=== PATIENT | female | born 1975 | race Caucasian/White ===

== ENCOUNTER 2018-02-12 10:59 | Day surgery (SDC) | payer OTHER ==
[~2018-02-12 10:59] MED LIST: PROPOFOL 200 MG/20 ML VIAL As Ordered
[2018-02-12] MEDS ORDERED: NS 1,000 ML IV (12:00)
== END 2018-02-12 13:31 | disposition home or self-care (01) ==
LOC: M OPP 10:59
DX: K62.5 Hemorrhage of anus and rectum (principal); K64.1 Second degree hemorrhoids; G43.909 Migraine, unspecified, not intractable, without status migrainosus; R56.9 Unspecified convulsions; F41.9 Anxiety disorder, unspecified; J45.909 Unspecified asthma, uncomplicated; Z88.1 Allergy status to other antibiotic agents; Z88.8 Allergy status to other drugs, medicaments and biological substances; Z79.899 Other long term (current) drug therapy
CPT/HCPCS: 45378

== ENCOUNTER → 2019-04-11 | Outpatient (CLI) | payer OTHER ==
[~2019-04-11] MED LIST changes: +CLAR5TAB PO; +FOLI1TAB11 PO; +METH2.5T48 PO; -PROPOFOL 200 MG/20 ML VIAL As Ordered; +RIZA10TA2 PO; +TOPA100T12 PO; +VENL75CA47 PO
[2019-04-11 18:16] LABS: BASO # 0.1 10^3/uL (0.0-0.2); BASO % 0.7 % (0.0-1.0); EOS # 0.1 10^3/uL (0.0-0.50); EOS % 0.8 % (0.0-3.0); HEMATOCRIT 42.9 % (36.0-47.0); HEMOGLOBIN 13.9 g/dl (12.0-15.5); LYMPH # 1.9 10^3/uL (1.5-4.5); LYMPH % 25.1 % (24.0-44.0); MEAN CORPUSCULAR HEMOGLOBIN 29.5 pg (27.0-33.0); MEAN CORPUSCULAR HGB CONC 32.4 g/dl (32.0-36.5); MEAN CORPUSCULAR VOLUME 91.1 fl (80.0-96.0); MONO # 0.5 10^3/uL (0.0-0.8); MONO % 6.1 % (0.0-5.0); NEUTROPHILS # 4.9 10^3/uL (1.8-7.7); NEUTROPHILS % 66.9 % (36.0-66.0); PLATELET COUNT, AUTOMATED 275 10^3/uL (150-450); RED BLOOD COUNT 4.71 10^6/uL (4.00-5.40); WHITE BLOOD COUNT 7.4 10^3/uL (4.0-10.0)
[2019-04-11 18:19] LABS: BLOOD UREA NITROGEN 9 MG/DL (7-18); CALCIUM LEVEL 8.5 MG/DL (8.5-10.1); CARBON DIOXIDE LEVEL 25 MEQ/L (21-32); CHLORIDE LEVEL 110 MEQ/L (98-107); CREATININE FOR GFR 0.64 MG/DL (0.55-1.30); GLOMERULAR FILTRATION RATE > 60.0 (>58); GLUCOSE, FASTING 82 MG/DL (70-100); POTASSIUM SERUM 3.9 MEQ/L (3.5-5.1); SODIUM LEVEL 142 MEQ/L (136-145)
[2019-04-11 18:27] LABS: HCG, SERUM QUALITATIVE NEGATIVE (NEGATIVE)
== END ==
LOC: M WUC 11:57
PROVIDERS: ATTEND Orthopaedic Surgery
DX: Z01.818 Encounter for other preprocedural examination (principal); M24.151 Other articular cartilage disorders, right hip; M25.551 Pain in right hip

== ENCOUNTER → 2020-03-17 | Outpatient (CLI) | payer OTHER ==
[2020-03-17 17:11] LABS: ALBUMIN 4.1 GM/DL (3.2-5.2); PERCENT SATURATION 40.9 % (13.2-45.0)
[2020-03-17 17:13] LABS: BASO # 0.1 10^3/uL (0.0-0.2); BASO % 0.9 % (0.0-1.0); EOS # 0.1 10^3/uL (0.0-0.5); EOS % 0.9 % (0.0-3.0); HEMATOCRIT 42.8 % (36.0-47.0); HEMOGLOBIN 14.3 g/dl (12.0-15.5); LYMPH # 2.4 10^3/uL (1.5-5.0); LYMPH % 31.5 % (24.0-44.0); MEAN CORPUSCULAR HEMOGLOBIN 29.7 pg (27.0-33.0); MEAN CORPUSCULAR HGB CONC 33.4 g/dl (32.0-36.5); MONO # 0.6 10^3/uL (0.0-0.8); MONO % 7.2 % (0.0-5.0); NEUTROPHILS # 4.5 10^3/uL (1.5-8.5); NEUTROPHILS % 59.2 % (36.0-66.0); PLATELET COUNT, AUTOMATED 325 10^3/uL (150-450); RED BLOOD COUNT 4.81 10^6/uL (4.00-5.40); WHITE BLOOD COUNT 7.7 10^3/uL (4.0-10.0)
== END ==
LOC: M WUC 14:02
PROVIDERS: ATTEND Orthopaedic Surgery
DX: Z01.818 Encounter for other preprocedural examination (principal); M16.11 Unilateral primary osteoarthritis, right hip; M25.559 Pain in unspecified hip

== ENCOUNTER 2020-07-10 13:21 | Emergency (ER) | payer OTHER ==
[~2020-07-10] VITALS: Ht 162.6 cm; Wt 65.2 kg
[2020-07-10] MEDS ORDERED: DULO1CAP6 PO (13:31)
[2020-07-10 15:10] LABS: BASO # 0.1 10^3/uL (0.0-0.2); BASO % 0.7 % (0.0-1.0); EOS # 0.1 10^3/uL (0.0-0.5); EOS % 0.6 % (0.0-3.0); HEMATOCRIT 42.2 % (36.0-47.0); LYMPH # 1.6 10^3/uL (1.5-5.0); LYMPH % 18.7 % (24.0-44.0); MEAN CORPUSCULAR HEMOGLOBIN 29.7 pg (27.0-33.0); MEAN CORPUSCULAR HGB CONC 33.2 g/dl (32.0-36.5); MEAN CORPUSCULAR VOLUME 89.4 fl (80.0-96.0); MONO # 0.4 10^3/uL (0.0-0.8); MONO % 4.7 % (0.0-5.0); NEUTROPHILS # 6.6 10^3/uL (1.5-8.5); NEUTROPHILS % 74.8 % (36.0-66.0); PLATELET COUNT, AUTOMATED 255 10^3/uL (150-450); RED BLOOD COUNT 4.72 10^6/uL (4.00-5.40); WHITE BLOOD COUNT 8.8 10^3/uL (4.0-10.0)
[2020-07-10 15:29] LABS: ALBUMIN 4.2 GM/DL (3.2-5.2); ALT/SGPT 19 U/L (12-78); BILIRUBIN,DIRECT < 0.1 MG/DL (0.0-0.2); BILIRUBIN,TOTAL 0.4 MG/DL (0.2-1.0); BLOOD UREA NITROGEN 14 MG/DL (7-18); CALCIUM LEVEL 8.8 MG/DL (8.5-10.1); CARBON DIOXIDE LEVEL 26 MEQ/L (21-32); CHLORIDE LEVEL 110 MEQ/L (98-107); CREATININE FOR GFR 0.68 MG/DL (0.55-1.30); GLOMERULAR FILTRATION RATE > 60.0 (>58); GLUCOSE, FASTING 99 MG/DL (70-100); LIPASE 78 U/L (73-393); POTASSIUM SERUM 4.3 MEQ/L (3.5-5.1); SODIUM LEVEL 140 MEQ/L (136-145); TOTAL PROTEIN 7.2 GM/DL (6.4-8.2)
--- NOTE | 2020-07-10 15:38 | REPVR ---
PROCEDURE INFORMATION: Exam: US Pelvis Complete, Transabdominal and US Pelvis, Transvaginal and US Duplex Artery and Vein, Ovaries, Complete Exam date and time: 07/10/2020 3:20 PM Age: 45 years old Clinical indication: Pelvic pain; Additional info: Rlq pain, h/o ovarian cysts, s/o appendectomy TECHNIQUE: Imaging protocol: Real-time transabdominal and transvaginal pelvic ultrasound (complete) with image documentation. Transvaginal imaging was used for better evaluation of the endometrium and adnexa. Real-time duplex ultrasound scan of the arterial and venous flow of the ovaries with B-mode, color Doppler flow and spectral waveform analysis. COMPARISON: No relevant prior studies available. FINDINGS: Uterus/cervix: The uterus measures 8.2 x 3.7 x 5.0 cm transabdominally and 8.0 x 3.8 x 4.6 cm transvaginally. It is homogeneous in echotexture, without demonstrated lesion. An intrauterine device is in place. The endometrium measures 4.1 mm in thickness transvaginally. Right adnexa: The right ovary measures 6.3 x 6.6 x 5.9 cm transabdominally and 6.3 x 5.1 x 6.5 cm transvaginally. It contains a simple cyst which measures 5.4 x 4.8 x 3.7 cm. There is normal internal arterial and venous flow. Peak systolic velocity 11.3 cm/s, end-diastolic velocity 5.3 cm/s, resistive index 0.53. Left adnexa: The left ovary measures 2.0 x 1.3 x 1.8 cm, as visualized transvaginally only. It is without demonstrated abnormality and with internal arterial and venous flow. Peak systolic velocity 7.5 cm/s, end-diastolic velocity 4.3 cm/s, resistive index 0.43. Intraperitoneal space: No significant free fluid is demonstrated. Bladder: The urinary bladder was essentially empty. IMPRESSION: 1. Unremarkable uterus with an intrauterine device in place. 2. 5.4 cm simple right ovarian cyst. Recommend yearly follow-up. 3. Unremarkable left ovary. 4. Normal internal flow to the ovaries without torsion. Electronically signed by: Zane Vital On 07/10/2020 15:38:00 PM
[2020-07-10] MEDS ORDERED: IBUP80TA PO (16:23)
[2020-07-10 16:31] LABS: HCG, SERUM QUALITATIVE NEGATIVE (NEGATIVE)
[2020-07-10] MEDS ORDERED: KETOROLAC 30 MG/ML 1ML VIAL IV ONE (16:45)
[2020-07-10 17:00] VITALS: BP 122/76
--- NOTE | 2020-07-11 19:58 | ED PDOC ---
Post-Departure Follow-Up dr jennifer wagner faxed formal report of pelvic us for fu Eitan Rai MD Jul 11, 2020 19:57
== END 2020-07-10 17:01 | disposition home or self-care (01) ==
LOC: M ED 13:21
DX: N83.299 Other ovarian cyst, unspecified side (principal); R10.31 Right lower quadrant pain; Z97.5 Presence of (intrauterine) contraceptive device; Z86.19 Personal history of other infectious and parasitic diseases; Z87.59 Personal history of other complications of pregnancy, childbirth and the puerperium; D25.9 Leiomyoma of uterus, unspecified
CPT/HCPCS: 76830; 76856; 80048; 80076; 81001; 83690; 84703; 85025; 93976; 99284; J1885

== ENCOUNTER → 2020-10-14 | Outpatient (CLI) | payer OTHER ==
[~2020-10-14] MED LIST changes: +DULO1CAP6 PO; +IBUP80TA PO; +SYMB80INH INH
== END ==
LOC: M LABSMTC 08:30
PROVIDERS: ATTEND Anesthesiology
DX: Z01.812 Encounter for preprocedural laboratory examination (principal); Z20.828 Contact with and (suspected) exposure to other viral communicable diseases

== ENCOUNTER 2020-10-19 06:30 | Day surgery (SDC) | payer OTHER ==
[2020-10-19] VITALS (7 sets, daily range): BP systolic 103–124; BP diastolic 61–85
[~2020-10-19] VITALS: Ht 160 cm; Wt 64.9 kg
[2020-10-19 06:58] LABS: HEMATOCRIT 46.6 % (36.0-47.0); HEMOGLOBIN 14.4 g/dl (12.0-15.5); MEAN CORPUSCULAR HEMOGLOBIN 28.2 pg (27.0-33.0); MEAN CORPUSCULAR HGB CONC 30.9 g/dl (32.0-36.5); MEAN CORPUSCULAR VOLUME 91.4 fl (80.0-96.0); PLATELET COUNT, AUTOMATED 294 10^3/uL (150-450); WHITE BLOOD COUNT 7.8 10^3/uL (4.0-10.0)
[2020-10-19] MEDS ORDERED: VANCOMYCIN HCL 1,000 MG, VIAL MATE ADAPTER 1 EACH in D5W 250 ML IV ONE (07:00)
[2020-10-19] MEDS ORDERED: LR 1,000 ML IV ONE (07:00)
[2020-10-19] MEDS ORDERED: fentaNYL 250 MCG/5 ML INJECTION (J3010) As Ordered ONE (07:02)
[2020-10-19] MEDS ORDERED: MIDAZOLAM INJ 2MG/2ML VIAL (J2250 PER 1MG) As Ordered ONE (07:02)
[2020-10-19] MEDS ORDERED: propofoL 200 MG/20 ML VIAL As Ordered ONE (07:03)
[2020-10-19] MEDS ORDERED: ROCURONIUM BROMIDE 50 MG/5 ML VIAL As Ordered ONE (07:05)
[2020-10-19] MEDS ORDERED: dexameTHASONE 4 MG/ML 1ML VIAL (J1100 PER 1MG) As Ordered ONE (07:09)
[2020-10-19] MEDS ORDERED: ONDANSETRON 4MG/2ML VIAL As Ordered ONE (07:09)
[2020-10-19] MEDS ORDERED: KETOROLAC 60MG 2ML VIAL As Ordered ONE (07:09)
[2020-10-19] MEDS ORDERED: METOCLOPRAMIDE INJ 10MG/2ML VIAL (J2765 PER 1) As Ordered ONE (07:09)
[2020-10-19] MEDS ORDERED: ACETAMINOPHEN 1000MG 100ML IV BTL (OFIRMEV) (J0131 PER 10MG) As Ordered ONE (07:10)
[2020-10-19] MEDS ORDERED: SUGAMMADEX SODIUM 500 MG/5 ML VIAL (BRIDION) As Ordered ONE (07:10)
[2020-10-19] MEDS ORDERED: LIDOCAINE 2% 100MG/5ML SDV (FOR ANES.) As Ordered ONE (07:14)
[2020-10-19] MEDS ORDERED: SCOPOLAMINE 1MG TRANSDERMAL PATCH As Ordered ONE (07:37)
[2020-10-19] MEDS: metroNIDAZOLE 500 MG in IV 1 EA IV SCH ×2 (08:00→08:11)
[2020-10-19] MEDS ORDERED: ePHEDrine SULFATE 25 MG/5 ML(5MG/ML) SYRINGE As Ordered ONE (08:22)
[2020-10-19] MEDS ORDERED: GLYCOPYRROLATE INJ 0.2 MG/ML 2 ML VIAL As Ordered ONE (08:25)
[2020-10-19] MEDS ORDERED: PHENYLephrine HCL 500 MCG/5 ML (100MCG/ML) SYRINGE (J2370) As Ordered ONE (08:27)
[2020-10-19] MEDS: fentaNYL 100 MCG/2 ML INJECTION (J3010) IV PRN ×4 (10:10→10:26)
[2020-10-19] MEDS: oxyCODONE 5MG TAB PO PRN ×2 (10:11→10:52)
[2020-10-19] MEDS ORDERED: LR 1,000 ML IV SCH ×2 (10:15→12:15)
[2020-10-19] MEDS ORDERED: IBUPROFEN 600MG TAB PO PRN (10:15)
[2020-10-19] MEDS ORDERED: NS 1,000 ML IV SCH (10:15)
[2020-10-19] MEDS ORDERED: MORPHINE 1MG/ML IN 0.9% NACL 100ML IV BAG IV PRN (10:15)
[2020-10-19] MEDS ORDERED: ONDANSETRON 4MG/2ML VIAL IV PRN ×2 (10:15→12:15)
[2020-10-19] MEDS ORDERED: diphenhydrAMINE 50MG/ML VIAL (J1200) IV PRN (10:15)
[2020-10-19] MEDS ORDERED: NALOXONE INJ 0.4MG/1ML VIAL (J2310 PER 1MG) IV PRN (10:15)
[2020-10-19] MEDS ORDERED: NALBUPHINE HCL 10 MG/ML AMP (J2300) IV PRN (10:15)
[2020-10-19] MEDS ORDERED: EPIDURAL/PCA KEYS XX PRN (10:15)
[2020-10-19] MEDS ORDERED: RIZATRIPTAN BENZOATE 10 MG TAB PO PRN (11:30)
[2020-10-19] MEDS ORDERED: fentaNYL 100 MCG/2 ML INJECTION (J3010) IV PRN (12:15)
[2020-10-19] MEDS ORDERED: oxyCODONE 5MG TAB PO PRN (12:15)
--- NOTE | 2020-10-19 13:05 | RO ---
OPERATIVE NOTE DATE OF OPERATION: 10/19/2020 PREOPERATIVE DIAGNOSES: Pain, bleeding, failed intrauterine device (IUD), etc. POSTOPERATIVE DIAGNOSES: Pain, bleeding, failed intrauterine device (IUD), etc. PROCEDURE: Laparoscopic-assisted vaginal hysterectomy with bilateral salpingo-oophorectomy (LAVH-BSO) and removal of IUD. SURGEON: Kristin Dhillon M.D. PHILANTHROPY OFFICER: None. ANESTHESIA: General endotracheal anesthesia. SPECIMENS: Uterus, ovaries, tubes, and IUD. BRIEF DESCRIPTION OF PROCEDURE AND FINDINGS: Pawel was brought to the operating room where sufficient general endotracheal anesthesia was induced. She was prepped, draped, and positioned in the usual sterile fashion with the weighted speculum placed. IUD removed, the cervix dilated, and the uterine manipulator placed and the Crowell with the ability to backfill placed. Mirena IUD was removed intact. There were no complications to the removal. With the manipulation in the place, we turned out attention to the laparoscopic portion of the case. A transverse semilunar incision was made below the umbilicus. Sharp and blunt dissection were continued through the subcutaneous tissues to the level of the rectus fascia, which was elevated with Tessa clamps, transversely incised, and secured with 0-Vicryl retention suture and then, the peritoneum was visualized and carefully entered. Under direct visualization, the Jose Luis cannula was then placed and secured in place with the 0-Vicryl tension sutures and CO2 insufflation was then begun. After adequate CO2 insufflation, the peritoneal cavity was visualized. There were normal shiny peritoneal surfaces throughout. There was no excrescence, ascites, nor exudate, and the uterus, ovaries, and tubes were reassuring in appearance. There were some very minor filmy adhesions of the descending colon to the left pelvic side wall and left flank. These were left in place; they were not distorting nor disrupting access for the case, they were quite minimal, and the infundibulopelvic ligaments were readily accessible. With Trendelenburg and the use of the uterine manipulator, we isolated the infundibulopelvic ligaments. We used the #45 Enseal to carefully cauterize and transect the infundibulopelvic starting on the left and working our way through the mesentery toward the round, which we then also cauterized and transected bilaterally. Then, we were able to see absence of injury to the bladder or bowel from above. We had the ovaries free and so attention was turned to the vaginal portion of the case with the instruments removed above, but the trocar left secured in place should we need it. Working vaginally with the uterine manipulator removed, single-toothed tenaculum were placed on the anterior and posterior aspect of the cervix. A scalpel was used to incise circumferentially around the base of the cervix and the cardinal ligaments were isolated and clamped with the Tan clamps, which were used throughout this portion of this case, transected and then sutured with 0-Vicryl suture. The uterosacrals were then clamped, transected, ligated, and secured for later resecuring to the cuff and of course, the peritoneum was entered posteriorly and the dissection was continued anteriorly. We were undermining the peritoneum a little bit there, but we had the bladder well away and so, we carefully controlled the uterine vasculature bilaterally, carefully clamping, cutting, and ligating the sutures in a progressive fashion until we could reach the level of the bladder flap; which was a little higher and then, transected this and completed the dissection through the uterine vasculature so that the uterus could be delivered with the ovaries and tubes attached. So, the intact uterus was delivered and the pedicles carefully evaluated. We were able to see good hemostasis and so angle stitches of 0-Vicryl were used to close the cuff and resecure the uterosacrals and then, the cuff was closed with a running lock stitch of 0-Vicryl with good approximation and hemostasis achieved. We had backfilled the bladder as well to confirm lack of injury to the bladder. We had good closure vaginally; so, we went ahead and removed the trocar up above and used 0-Vicryl tension sutures to close the fascial layer at the umbilicus and then closed the skin in a subcuticular stitch of 3-0 Vicryl with dry sterile dressing then applied, and the procedure ended. ESTIMATED BLOOD LOSS: For the procedure was about 75 mL. FLUID REPLACEMENT: Crystalloid. COMPLICATIONS: None. CONDITION AND DISPOSITION: Pawel tolerated the procedure well and was recovering in the recovery room in good condition.
[2020-10-19] MEDS: LR 1,000 ML IV SCH ×2 (13:35→18:46)
[2020-10-19] MEDS: TOPIRAMATE (TopAMAX) 100 MG TAB PO SCH (20:07)
[2020-10-20] MEDS: LR 1,000 ML IV SCH ×2 (02:17→09:35)
[2020-10-20 02:44] VITALS: BP 102/65
[2020-10-20 05:46] VITALS: BP 139/73
[2020-10-20 06:00] VITALS: BP 107/68
[2020-10-20] MEDS ORDERED: NORCO, ANEXSIA 5/325MG TABLET (HYDROcodone/ACETAMINOPHEN) PO PRN (06:00)
[2020-10-20 07:08] LABS: HEMATOCRIT 37.9 % (36.0-47.0); MEAN CORPUSCULAR HEMOGLOBIN 29.7 pg (27.0-33.0); MEAN CORPUSCULAR HGB CONC 31.9 g/dl (32.0-36.5); MEAN CORPUSCULAR VOLUME 93.1 fl (80.0-96.0); PLATELET COUNT, AUTOMATED 253 10^3/uL (150-450); RED BLOOD COUNT 4.07 10^6/uL (4.00-5.40); WHITE BLOOD COUNT 15.7 10^3/uL (4.0-10.0)
[2020-10-20 07:09] LABS: HEMOGLOBIN 12.1 g/dl (12.0-15.5)
[2020-10-20] MEDS ORDERED: DULoxetine 30 MG CAP (CYMBALTA) PO SCH (09:00)
[2020-10-20] MEDS: TOPIRAMATE (TopAMAX) 100 MG TAB PO SCH (09:34)
[2020-10-20] MEDS ORDERED: PROMETHAZINE 25 MG TAB PO ONE (10:00)
[2020-10-20 14:00] VITALS: BP 123/75
== END 2020-10-20 17:00 | disposition home or self-care (01) ==
LOC: M SDC 06:30 → M MS5PR 11:40 → M SDC 10-20 17:00
PROVIDERS: ATTEND Obstetrics & Gynecology
DX: N93.9 Abnormal uterine and vaginal bleeding, unspecified (principal); R10.2 Pelvic and perineal pain; N83.00 Follicular cyst of ovary, unspecified side; J45.909 Unspecified asthma, uncomplicated; F41.9 Anxiety disorder, unspecified; Z79.899 Other long term (current) drug therapy; Z88.1 Allergy status to other antibiotic agents; Z88.8 Allergy status to other drugs, medicaments and biological substances
CPT/HCPCS: 36415; 58301; 58571; 81025; 85027; 86850; 86900; 86901; 88307; 96360; 96361; J0131; J1100; J1885; J2250; J2370; J2405; J2765; J3010; J3370

== ENCOUNTER → 2020-11-13 | Outpatient (REF) | payer OTHER ==
[2020-11-13 15:48] LABS: C REACTIVE PROTEIN QUANTITATIV < 0.30 MG/DL (0.00-0.30); CPK CREATINE PHOSPHOKINASE 62 U/L (26-192); IRON (FE) 73 UG/DL (50-170); MAGNESIUM LEVEL 2.3 MG/DL (1.8-2.4); PHOSPHORUS LEVEL 3.6 MG/DL (2.5-4.9); RHEUMATOID FACTOR QUANT < 10.0 IU/ML (<15.0); THYROID STIMULATING HORMONE 0.741 uIU/ML (0.358-3.740); VITAMIN B12 LEVEL 436 PG/ML (247-911)
== END ==
LOC: M SFHCRHEU 10:14
PROVIDERS: ATTEND Internal Medicine
DX: M79.10 Myalgia, unspecified site (principal); M25.50 Pain in unspecified joint; R68.2 Dry mouth, unspecified; M54.9 Dorsalgia, unspecified

== ENCOUNTER → 2020-11-13 | Outpatient (CLI) | payer OTHER ==
--- NOTE | 2020-11-13 11:18 | REP ---
INDICATION: DORSALGIA. COMPARISON: None. TECHNIQUE: Single frontal view of the pelvis. FINDINGS: Evidence for prior right hip replacement. Minimal age-related changes to the left hip includes increased sclerosis to the acetabular roof with mild spurring. The bilateral sacroiliac joints are normal and symmetric. No acute or healed fracture. Soft tissues are unremarkable. IMPRESSION: Minimal degenerative changes to the left hip. <Electronically signed by Jose M Shaffer > 11/13/20 [id number]
== END ==
LOC: M RAD 10:51
PROVIDERS: ATTEND Internal Medicine
DX: M54.9 Dorsalgia, unspecified (principal); Z96.641 Presence of right artificial hip joint

== ENCOUNTER → 2020-11-27 | Outpatient (CLI) | payer OTHER ==
[2020-11-27 15:30] LABS: BASO # 0.1 10^3/uL (0.0-0.2); BASO % 0.7 % (0.0-1.0); EOS # 0.1 10^3/uL (0.0-0.5); EOS % 0.9 % (0.0-3.0); HEMATOCRIT 49.6 % (36.0-47.0); HEMOGLOBIN 15.8 g/dl (12.0-15.5); LYMPH # 2.5 10^3/uL (1.5-5.0); LYMPH % 30.9 % (24.0-44.0); MEAN CORPUSCULAR HGB CONC 31.9 g/dl (32.0-36.5); MONO # 0.4 10^3/uL (0.0-0.8); MONO % 5.1 % (0.0-5.0); NEUTROPHILS # 5.1 10^3/uL (1.5-8.5); NEUTROPHILS % 62.3 % (36.0-66.0); PLATELET COUNT, AUTOMATED 265 10^3/uL (150-450); RED BLOOD COUNT 5.45 10^6/uL (4.00-5.40); WHITE BLOOD COUNT 8.2 10^3/uL (4.0-10.0)
[2020-11-27 15:49] LABS: ALBUMIN 4.2 GM/DL (3.2-5.2); ALT/SGPT 37 U/L (12-78); BILIRUBIN,DIRECT < 0.1 MG/DL (0.0-0.2); BILIRUBIN,TOTAL 0.4 MG/DL (0.2-1.0); CREATININE FOR GFR 0.75 MG/DL (0.55-1.30); GLOMERULAR FILTRATION RATE > 60.0 (>58); TOTAL PROTEIN 7.8 GM/DL (6.4-8.2)
== END ==
LOC: M LAB 14:25
PROVIDERS: ATTEND Obstetrics & Gynecology
DX: R10.811 Right upper quadrant abdominal tenderness (principal)

== ENCOUNTER → 2021-03-20 | Outpatient (REF) | payer OTHER | LOC: M SFHCWAGY 09:49 | PROVIDERS: ATTEND Nurse Practitioner Women's Health | DX: Z12.4 Encounter for screening for malignant neoplasm of cervix (principal); Z77.9 Other contact with and (suspected) exposures hazardous to health ==

== ENCOUNTER → 2021-04-06 | Outpatient (CLI) | payer OTHER ==
--- NOTE | 2021-04-06 10:34 | REP ---
INDICATION: DONNA DIAG MAMMO/LEFT BREAST PAIN AND LUMP/N64.4/N63.0; BILATERAL LUMPS AND PAIN. COMPARISON: Comparison mammography is from 01 November 2020. November 01, 2019 and October 08, 2018 prior mammography is also reviewed. TECHNIQUE: Skin markers were affixed to the skin at the site of each palpable abnormality, 3 separate palpable lump areas on each side. Routine views of each breast were augmented by magnified focal spot-compression and views and 3D tomography. Targeted bilateral breast sonography is carried out. FINDINGS: Scattered fibroglandular elements are seen. Breast parenchyma is predominantly fat replaced. No dominant density is seen in the area of the palpable lumps on either side. No suspicious mammographic abnormality is observed. No mass, architectural distortion, or microcalcification is observed. No worrisome skin changes seen. The Volpara volumetric breast density pattern is B. Targeted bilateral breast sonography: Scanning is performed in the area of the painful palpable lumps bilaterally. Fairly homogeneous background echotexture is seen bilaterally. No cyst, mass, acoustic shadowing or other significant sonographic finding is seen in either breast.. IMPRESSION: BIRADS/ACR category 1 negative bilateral mammographic and bilateral sonographic findings.. This patient's Tyrer-Cuzick lifetime breast cancer risk assessment score is 11.5%. This mammogram was interpreted with the aid of an FDA-approved computer-aided detection system. The patient states she had a clinical breast exam in March of 2021. The patient letter being requested is M2. RECOMMENDATION: Repeat screening mammography recommended 1 year (for women over 40). Clinical follow-up regarding palpable lumps and breast tenderness. <Electronically signed by Augustus Garcia > 04/06/21 0920
== END ==
LOC: M WHC 08:51
PROVIDERS: ATTEND Internal Medicine
DX: N64.4 Mastodynia (principal); N63.0 Unspecified lump in unspecified breast

== ENCOUNTER → 2021-05-08 | Outpatient (CLI) | payer OTHER ==
[2021-05-08 12:32] LABS: BASO # 0.1 10^3/uL (0.0-0.2); EOS # 0.1 10^3/uL (0.0-0.5); EOS % 1.1 % (0.0-3.0); HEMATOCRIT 44.5 % (36.0-47.0); HEMOGLOBIN 14.1 g/dl (12.0-15.5); LYMPH % 27.9 % (24.0-44.0); MEAN CORPUSCULAR HEMOGLOBIN 29.2 pg (27.0-33.0); MEAN CORPUSCULAR HGB CONC 31.7 g/dl (32.0-36.5); MEAN CORPUSCULAR VOLUME 92.1 fl (80.0-96.0); MONO # 0.5 10^3/uL (0.0-0.8); MONO % 6.5 % (2.0-8.0); NEUTROPHILS # 4.6 10^3/uL (1.5-8.5); NEUTROPHILS % 62.9 % (36.0-66.0); PLATELET COUNT, AUTOMATED 338 10^3/uL (150-450); RED BLOOD COUNT 4.83 10^6/uL (4.00-5.40); WHITE BLOOD COUNT 7.3 10^3/uL (4.0-10.0)
[2021-05-08 13:07] LABS: BLOOD UREA NITROGEN 9 MG/DL (7-18); CALCIUM LEVEL 9.6 MG/DL (8.5-10.1); CARBON DIOXIDE LEVEL 27 MEQ/L (21-32); CHLORIDE LEVEL 108 MEQ/L (98-107); CREATININE FOR GFR 0.67 MG/DL (0.55-1.30); GLOMERULAR FILTRATION RATE > 60.0 (>58); GLUCOSE, FASTING 91 MG/DL (70-100); POTASSIUM SERUM 4.4 MEQ/L (3.5-5.1); SODIUM LEVEL 140 MEQ/L (136-145)
== END ==
LOC: M WUC 09:33
PROVIDERS: ATTEND Orthopaedic Surgery
DX: Z01.818 Encounter for other preprocedural examination (principal); M24.151 Other articular cartilage disorders, right hip; M25.551 Pain in right hip

== ENCOUNTER → 2021-06-12 | Outpatient (CLI) | payer OTHER ==
[2021-06-12 13:27] LABS: BASO # 0.1 10^3/uL (0.0-0.2); BASO % 0.9 % (0.0-1.0); EOS # 0.1 10^3/uL (0.0-0.5); EOS % 0.9 % (0.0-3.0); HEMATOCRIT 44.8 % (36.0-47.0); HEMOGLOBIN 14.3 g/dl (12.0-15.5); LYMPH # 1.9 10^3/uL (1.5-5.0); LYMPH % 33.8 % (24.0-44.0); MEAN CORPUSCULAR HEMOGLOBIN 28.8 pg (27.0-33.0); MEAN CORPUSCULAR HGB CONC 31.9 g/dl (32.0-36.5); MEAN CORPUSCULAR VOLUME 90.3 fl (80.0-96.0); MONO # 0.3 10^3/uL (0.0-0.8); MONO % 4.7 % (2.0-8.0); NEUTROPHILS # 3.3 10^3/uL (1.5-8.5); NEUTROPHILS % 59.5 % (36.0-66.0); PLATELET COUNT, AUTOMATED 283 10^3/uL (150-450); RED BLOOD COUNT 4.96 10^6/uL (4.00-5.40); WHITE BLOOD COUNT 5.6 10^3/uL (4.0-10.0)
[2021-06-12 13:56] LABS: BLOOD UREA NITROGEN 14 MG/DL (7-18); CALCIUM LEVEL 9.3 MG/DL (8.5-10.1); CARBON DIOXIDE LEVEL 28 MEQ/L (21-32); CHLORIDE LEVEL 109 MEQ/L (98-107); CREATININE FOR GFR 0.73 MG/DL (0.55-1.30); GLOMERULAR FILTRATION RATE > 60.0 (>58); GLUCOSE, FASTING 86 MG/DL (70-100); POTASSIUM SERUM 4.3 MEQ/L (3.5-5.1); SODIUM LEVEL 142 MEQ/L (136-145)
== END ==
LOC: M WUC 10:12
PROVIDERS: ATTEND Orthopaedic Surgery
DX: Z01.818 Encounter for other preprocedural examination (principal); M24.151 Other articular cartilage disorders, right hip

== ENCOUNTER → 2022-04-23 | Outpatient (CLI) | payer OTHER ==
[2022-04-23 13:39] LABS: BLOOD UREA NITROGEN 9 MG/DL (7-18); CALCIUM LEVEL 9.7 MG/DL (8.5-10.1); CARBON DIOXIDE LEVEL 25 MEQ/L (21-32); CHLORIDE LEVEL 111 MEQ/L (98-107); CREATININE FOR GFR 0.74 MG/DL (0.55-1.30); GLOMERULAR FILTRATION RATE > 60.0 (>58); GLUCOSE, FASTING 97 MG/DL (70-100); POTASSIUM SERUM 4.2 MEQ/L (3.5-5.1); SODIUM LEVEL 143 MEQ/L (136-145)
== END ==
LOC: M WUC 08:55
PROVIDERS: ATTEND Ophthalmology Ophthalmic Plastic and Reconstructive Surgery
DX: H02.423 Myogenic ptosis of bilateral eyelids (principal)

== ENCOUNTER → 2023-08-21 | Outpatient (CLI) | payer OTHER ==
[~2023-08-21] MED LIST changes: -CLAR5TAB PO; +DESL5TAB28 PO
[2023-08-21 17:56] LABS: ALBUMIN 4.1 G/DL (3.2-5.2); ALKALINE PHOSPHATASE 93 U/L (46-116); ALT/SGPT 29 U/L (7.0-40); AST/SGOT 20 U/L (<34); BILIRUBIN,DIRECT < 0.1 MG/DL (<0.4); BILIRUBIN,TOTAL 0.3 MG/DL (0.3-1.2); CREATININE FOR GFR 0.63 MG/DL (0.55-1.30); GLOMERULAR FILTRATION RATE > 60.0 (>58); TOTAL PROTEIN 6.6 G/DL (5.7-8.2)
== END ==
LOC: M WUC 13:42
DX: E66.3 Overweight (principal)

== ENCOUNTER → 2024-05-28 | Outpatient (CLI) | payer OTHER ==
[2024-05-28 16:10] LABS: BASO # 0.1 10^3/uL (0.0-0.2); BASO % 0.7 % (0.0-1.0); EOS # 0.1 10^3/uL (0.0-0.5); EOS % 1.4 % (0.0-3.0); HEMATOCRIT 42.8 % (36.0-47.0); HEMOGLOBIN 13.7 g/dl (12.0-15.5); LYMPH # 2.7 10^3/uL (1.5-5.0); LYMPH % 32.3 % (24.0-44.0); MEAN CORPUSCULAR HEMOGLOBIN 28.7 pg (27.0-33.0); MEAN CORPUSCULAR VOLUME 89.5 fl (80.0-96.0); MONO # 0.5 10^3/uL (0.0-0.8); MONO % 5.8 % (2.0-8.0); NEUTROPHILS % 59.4 % (36.0-66.0); PLATELET COUNT, AUTOMATED 308 10^3/uL (150-450); RED BLOOD COUNT 4.78 10^6/uL (4.00-5.40); WHITE BLOOD COUNT 8.5 10^3/uL (4.0-10.0)
[2024-05-28 16:22] LABS: INR 1.04; PARTIAL THROMBOPLASTIN TIME 28.6 SECONDS (24.8-34.2); PROTHROMBIN TIME 13.3 SECONDS (12.5-14.5)
[2024-05-28 16:37] LABS: ALBUMIN 3.8 G/DL (3.2-5.2); ALKALINE PHOSPHATASE 97 U/L (46-116); ALT/SGPT 19 U/L (7.0-40); AST/SGOT < 8 U/L (<34); BILIRUBIN,TOTAL 0.3 MG/DL (0.3-1.2); BLOOD UREA NITROGEN 11 MG/DL (9-23); CALCIUM LEVEL 9.2 MG/DL (8.5-10.1); CARBON DIOXIDE LEVEL 28 MMOL/L (20-31); CHLORIDE LEVEL 109 MMOL/L (98-107); CREATININE FOR GFR 0.65 MG/DL (0.55-1.30); GLOMERULAR FILTRATION RATE > 60.0 (>58); GLUCOSE, FASTING 85 MG/DL (60-100); POTASSIUM SERUM 4.2 MMOL/L (3.5-5.1); SODIUM LEVEL 140 MMOL/L (136-145); TOTAL PROTEIN 6.3 G/DL (5.7-8.2)
== END ==
LOC: M WUC 12:45
PROVIDERS: ATTEND Registered Nurse
DX: Z01.818 Encounter for other preprocedural examination (principal)

== ENCOUNTER → 2025-10-01 | Outpatient (REF) | payer OTHER ==
[~2025-10-01] MED LIST changes: -DESL5TAB28 PO; +DESL5TAB30 PO
== END ==
LOC: M LAB REF 17:17
PROVIDERS: ATTEND Physician Assistant
DX: J06.9 Acute upper respiratory infection, unspecified (principal)